=== PATIENT | female | born 1930 | race Native Hawaiian/Other Pacific Islander ===

== ENCOUNTER 2019-04-12 18:02 | Emergency (ER) | payer OTHER ==
[~2019-04-12] VITALS: Ht 167.6 cm; Wt 81.2 kg
[2019-04-12 18:02] VITALS: TEMP 97.9
[2019-04-12 18:33] LABS: PLATELET COUNT 287 K/uL (152-353)
[2019-04-12 18:42] LABS: SODIUM 140 mmol/L (136-145)
[2019-04-12 19:00] VITALS: BP 139/58
[2019-04-12 19:19] LABS: PARTIAL THROMBOPLASTIN TIME 24.1 SECONDS (24.5-33.6)
[2019-04-12] MEDS ORDERED: ACET650S18 RE (22:59)
[2019-04-12] MEDS ORDERED: TYLENOL325 MG PO ×2 (23:00→23:26)
[2019-04-12] MEDS ORDERED: ANTACID & ANTIG1 SUS PO (23:01)
[2019-04-12] MEDS ORDERED: LIPITOR40 MG PO (23:02)
[2019-04-12] MEDS ORDERED: ASA LOW DOSE81 MG PO (23:02)
[2019-04-12] MEDS ORDERED: MULTI VITAMIN A1 TAB PO (23:03)
[2019-04-12] MEDS ORDERED: CELEXA10 MG PO ×2 (23:03→23:04)
[2019-04-12] MEDS ORDERED: DOCU100C10 PO (23:04)
[2019-04-12] MEDS ORDERED: DULCOLAX10 MG RE (23:06)
[2019-04-12] MEDS ORDERED: [UNRECOGNIZED DRUG - OTHER] PR (23:07)
[2019-04-12] MEDS ORDERED: FLONASE AL50 MCG/ACT INH (23:08)
[2019-04-12] MEDS ORDERED: GLYCOLAX3350 NF PO (23:09)
[2019-04-12] MEDS ORDERED: IMODIUM A-D2 MG PO (23:11)
[2019-04-12] MEDS ORDERED: TUSSIN DM 10-101 SYP PO (23:11)
[2019-04-12] MEDS ORDERED: LAMICTAL25 MG PO (23:12)
[2019-04-12] MEDS ORDERED: LOSA50TA PO (23:13)
[2019-04-12] MEDS ORDERED: [UNRECOGNIZED DRUG - OTHER] EX (23:14)
[2019-04-12] MEDS ORDERED: MILK OF MA400 MG/5 M PO (23:15)
[2019-04-12] MEDS ORDERED: NYSTATIN1 POW XX (23:17)
[2019-04-12] MEDS ORDERED: OMEGA 31000 MG PO (23:18)
[2019-04-12] MEDS ORDERED: PROPRANOLOL HYD40 MG PO (23:19)
[2019-04-12] MEDS ORDERED: ACID REDUCER150 MG PO (23:20)
[2019-04-12] MEDS ORDERED: REFRESH TEARS0.5 % OPTH (23:22)
[2019-04-12] MEDS ORDERED: RISP0.25 PO (23:23)
[2019-04-12] MEDS ORDERED: TORSEMIDE20 MG PO (23:24)
[2019-04-12] MEDS ORDERED: CEFT1INJ27 INJ (23:24)
[2019-04-12] MEDS ORDERED: VITAMI11 PO (23:25)
== END 2019-04-12 20:42 | disposition other institution (70) ==
LOC: ED 18:02
PROVIDERS: Emergency Medicine
DX: Z00.8 Encounter for other general examination (principal); F28 Other psychotic disorder not due to a substance or known physiological condition; I48.91 Unspecified atrial fibrillation
CPT/HCPCS: 80053; 82550; 84484; 85027; 85610; 85730; 93005; 96374; 99285; J3490

== ENCOUNTER 2019-09-20 21:30 | Emergency (ER) | payer OTHER ==
[~2019-09-20] VITALS: Ht 162.6 cm; Wt 78.0 kg
[~2019-09-20 21:30] MED LIST: ACET650S18 RE; ACID CONTROL20 MG PO; ACID REDUCER150 MG PO; AMANTADINE100 MG PO; ANTACID & ANTIG1 SUS PO; ANTI-DIARRHE2 MG PO; ASA LOW DOSE81 MG PO; CEFT1INJ27 INJ; CELEXA10 MG PO; CITALOPRAM20 MG PO; DOCU100C10 PO; DULCOLAX10 MG RE; ESCI10TA PO; FLONASE AL50 MCG/ACT INH; FURO40TA93 PO; GLYCOLAX3350 NF PO; IMODIUM A-D2 MG PO; LAMICTAL150 MG PO; LAMICTAL25 MG PO; LIPITOR40 MG PO; LOSA50TA PO; MILK OF MA400 MG/5 M PO; MULTI VITAMIN A1 TAB PO; NYSTATIN1 POW XX; OMEGA 31000 MG PO; PROPRANOLOL HYD40 MG PO; REFRESH TEARS0.5 % OPTH; RISP0.25 PO; RISP0.5T2 PO; RISP1TAB PO; SPIR50TA8 PO; TORSEMIDE20 MG PO; TUSSIN DM 10-101 SYP PO; TYLENOL325 MG PO; VITAMI11 PO; [UNRECOGNIZED DRUG - OTHER] EX; [UNRECOGNIZED DRUG - OTHER] PR
[2019-09-20 21:34] VITALS: BP 140/52; TEMP 97.5
[2019-09-20] MEDS ORDERED: PAIN & FEVER325 MG PO (21:39)
[2019-09-20] MEDS ORDERED: ACET650S18 RE (21:40)
[2019-09-20] MEDS ORDERED: AMIODARONE HYD200 MG PO (21:40)
[2019-09-20] MEDS ORDERED: ALUMSUS6 PO (21:41)
[2019-09-20] MEDS ORDERED: DIGOX125 MCG PO (21:42)
[2019-09-20] MEDS ORDERED: BISA10SU8 RE (21:43)
[2019-09-20] MEDS ORDERED: FLEET ENEMA RE (21:44)
[2019-09-20] MEDS ORDERED: GERI-TUSSI100 MG/5 M PO (21:45)
[2019-09-20] MEDS ORDERED: LAMOTRIGINE150 MG PO (21:47)
[2019-09-20] MEDS ORDERED: METO50TA63 PO (21:48)
[2019-09-20] MEDS ORDERED: MAGNSUS68 PO (21:49)
[2019-09-20] MEDS ORDERED: MULTIVITAMIN AD1 CHW PO (21:49)
[2019-09-20] MEDS ORDERED: POLY GLYCOL3350 M1 PO (21:50)
[2019-09-20] MEDS ORDERED: NYSTATIN100000 UNI MT (21:50)
[2019-09-20 21:55] LABS: PLATELET COUNT 317 K/uL (152-353)
[2019-09-20 22:08] LABS: POTASSIUM 5.3 mmol/L (3.6-5.2)
== END 2019-09-20 23:01 | disposition other institution (70) ==
LOC: ED 21:30
PROVIDERS: Emergency Medicine
DX: Z04.6 Encounter for general psychiatric examination, requested by authority (principal); N18.9 Chronic kidney disease, unspecified; I50.9 Heart failure, unspecified
CPT/HCPCS: 36415; 80053; 84484; 85027; 93005; 99283; 99285

== ENCOUNTER 2019-10-06 11:32 | Emergency (ER) | payer OTHER ==
[~2019-10-06] VITALS: Ht 162.6 cm; Wt 76.7 kg
[~2019-10-06 11:32] MED LIST changes: +ALUMSUS6 PO; +AMIODARONE HYD200 MG PO; +BISA10SU8 RE; +DIGOX125 MCG PO; +FLEET ENEMA RE; +GERI-TUSSI100 MG/5 M PO; +LAMOTRIGINE150 MG PO; +MAGNSUS68 PO; +METO50TA63 PO; +MULTIVITAMIN AD1 CHW PO; +NYSTATIN100000 UNI MT; +PAIN & FEVER325 MG PO; +POLY GLYCOL3350 M1 PO
[2019-10-06 11:42] VITALS: BP 161/66; TEMP 97.3
[2019-10-06 13:35] LABS: PLATELET COUNT 354 K/uL (152-353)
[2019-10-06 13:36] LABS: PARTIAL THROMBOPLASTIN TIME 21.9 SECONDS (24.5-33.6)
== END 2019-10-06 15:50 | disposition other institution (70) ==
LOC: ED 11:32
PROVIDERS: Family Medicine
PROC: 0HQ1XZZ Repair Face Skin, External Approach (ICD-10-PCS; principal; 2019-10-06)
DX: S00.83XA Contusion of other part of head, initial encounter (principal); W05.0XXA Fall from non-moving wheelchair, initial encounter; Y93.89 Activity, other specified; Y92.238 Other place in hospital as the place of occurrence of the external cause; S01.81XA Laceration without foreign body of other part of head, initial encounter
CPT/HCPCS: 80053; 85027; 85610; 85730; 99283; J7040